=== PATIENT | male | born 1950 | race Caucasian/White ===

== ENCOUNTER 2016-10-23 10:36 | Emergency (ER) | payer MEDICARE, BC ==
[2016-10-23 10:49] VITALS: BP 118/73
--- NOTE | 2016-10-23 11:36 | UC ---
Skin Complaint HPI - HPI Summary HPI Summary: 10/18/16 WAS CAMPING IN [place] AND HAD BUG BITES ON RIGHT FOREARM, THEY WERE SWOLLEN AND ITHCY. ITHCED THEM, NOW HAVING DRAINAGE AND REDNESS AT SITE OF INJURY - History of Current Complaint Chief Complaint: UCSkin Time Seen by Provider: 10/23/16 10:45 Stated Complaint: RIGHT ARM SKIN COMPLAINT SPIDER BITE Hx Obtained From: Patient Onset/Duration: Sudden Onset, Lasting Days, Still Present Skin Exposure Onset/Duration: Days Ago Onset Severity: Mild Current Severity: Moderate Pain Intensity: 5 Pain Scale Used: 0-10 Numeric Character: Swelling, Pruritus, Redness Aggravating: Nothing, Touch Alleviating: Nothing Associated Signs & Symptoms: Positive: Drainage, Tenderness Related History: Insect Bite/Sting, Possible Reaction to: Insect - Allergy/Home Medications Allergies/Adverse Reactions: Allergies Allergy/AdvReac Type Severity Reaction Status Date / Time ENVIRONMENT/SEASONA Allergy CONTROLLED Uncoded 10/23/16 10:44 Review of Systems Constitutional: Negative Skin: Other - INSECT BITES RIGHT FOREARM Eyes: Negative ENT: Negative Respiratory: Negative Cardiovascular: Negative Gastrointestinal: Negative Genitourinary: Negative Motor: Negative Neurovascular: Negative Musculoskeletal: Negative Neurological: Negative Psychological: Negative All Other Systems Reviewed And Are Negative: Yes PMH/Surg Hx/FS Hx/Imm Hx Previously Healthy: Yes - Surgical History Surgical History: Yes Surgery Procedure, Year, and Place: ARTHROSCOPY SURGERY LEFT KNEE, [facility] - Family History Known Family History: Negative: Blood Disorder, Other - NO MRSA - Social History Occupation: Retired Lives: With Family Alcohol Use: Occasionally Substance Use Type: None Smoking Status (MU): Former Smoker Type: Cigarettes Length of Time of Smoking/Using Tobacco: 5 yrs When Did the Patient Quit Smoking/Using Tobacco: 40 yrs ago - Immunization History Most Recent Influenza Vaccination: FALL 2015 Most Recent Tetanus Shot: UTD Most Recent Pneumonia Vaccination: NONE Physical Exam Triage Information Reviewed: Yes Vital Signs: Initial Vital Signs Temp 97.5 F 10/23/16 10:45 Pulse 105 10/23/16 10:45 Resp 18 10/23/16 10:45 BP 118/73 10/23/16 10:45 Pulse Ox 97 10/23/16 10:45 Eye Exam: Normal ENT Exam: Normal Dental Exam: Normal Neck exam: Normal Respiratory Exam: Normal Respiratory: Positive: Chest non-tender, Lungs clear, Normal breath sounds, No respiratory distress, No accessory muscle use Cardiovascular Exam: Normal Cardiovascular: Positive: RRR, No Murmur, Pulses Normal Musculoskeletal Exam: Normal Musculoskeletal: Positive: Strength Intact, ROM Intact Neurological Exam: Normal Psychological Exam: Normal Skin: Positive: Other - ERRETHEMATOUS WEEPING EXORIATED VESCICLE IN GROUPS OF THREE ON RIGHT FOREARM Course/Dx - Differential Diagnoses - Skin Complaint Differential Diagnoses: Allergic Reaction, Cellulitis, Contact Dermatitis, Eczema, Impetigo, MRSA, Tick Born Illness, Tinea - Diagnoses Provider Diagnoses: INSECT BITES RIGHT FOREARM; CELLULITIS RIGHT FOREARM Discharge - Discharge Plan Condition: Stable Disposition: HOME Prescriptions: DOXYcycline CAP(*) [DOXYcycline 100MG CAP(*)] 100 mg PO BID #20 cap Patient Education Materials: Cellulitis (ED), Insect Bite or Sting (ED) Referrals: Leighann Dooley MD [Primary Care Provider] - Images Front/Back of Body, Lg ([place]): 1 - ERRETHEMATOUS WEEPING EXORIATED VESCICLE IN GROUPS OF THREE ON RIGHT FOREARM 2 - ERRETHEMATOUS WEEPING EXORIATED VESCICLE IN GROUPS OF THREE ON RIGHT FOREARM
--- NOTE | 2016-10-24 07:56 | ED ---
Progress - Progress Note Progress Note: mrsa (-). Course/Dx - Diagnoses Provider Diagnoses: Insect bite
== END 2016-10-23 11:28 | disposition home or self-care (01) ==
LOC: UCCORT 10:36
DX: S50.861A Insect bite (nonvenomous) of right forearm, initial encounter (principal); L03.113 Cellulitis of right upper limb; W57.XXXA Bitten or stung by nonvenomous insect and other nonvenomous arthropods, initial encounter; Y93.89 Activity, other specified; Y92.821 Forest as the place of occurrence of the external cause; Z87.891 Personal history of nicotine dependence
CPT/HCPCS: 87070; 87205; 87640; 87641; 99212; G0463